=== PATIENT | male | born 1960 | race Two or more races ===

== ENCOUNTER → 2022-05-18 | Emergency (ER) | payer OTHER ==
[~2022-05-18] VITALS: Ht 180.3 cm; Wt 86.2 kg
[~2022-05-18] MED LIST: ATIVAN2 M1; PAXIL30 MG
== END | disposition home or self-care (01) ==
LOC: ER 14:15
DX: I10 Essential (primary) hypertension (principal)

== ENCOUNTER 2022-08-03 08:52 | Emergency (ER) | payer OTHER ==
[~2022-08-03] VITALS: Ht 180.3 cm; Wt 86.2 kg
== END 2022-08-03 12:10 | disposition home or self-care (01) ==
LOC: ER 08:52
DX: F41.0 Panic disorder [episodic paroxysmal anxiety] (principal); I10 Essential (primary) hypertension

== ENCOUNTER 2023-03-30 09:52 | Emergency (ER) | payer OTHER ==
[~2023-03-30] VITALS: Ht 180.3 cm; Wt 86.2 kg
[2023-03-30] MEDS ORDERED: AVAPRO300 MG PO (10:05)
== END 2023-03-30 15:03 | disposition home or self-care (01) ==
LOC: ER 09:52
DX: B02.39 Other herpes zoster eye disease (principal); I10 Essential (primary) hypertension